=== PATIENT | male | born 1980 | race Caucasian/White ===

== ENCOUNTER 2018-10-07 16:35 | Emergency (ER) | payer BC ==
[2018-10-07 17:07] LABS: Urine Blood NEGATIVE (NEG); Urine Glucose NEGATIVE (NEG); Urine Protein NEGATIVE (NEG); Urine Specific Gravity 1.005 (1.005-1.030); Urine pH 6.5 (5.0-7.0)
[2018-10-07 17:16] LABS: Absolute Lymphocytes (CBC) 1.2 K/uL (0.7-4.9); Basophils % 0.1 % (0-1.3); Lymphocytes % 8.1 % (15.3-44.8); MPV 9.4 fL (7.6-11.3); RBC Red Blood Cell Count 5.39 M/uL (4.33-5.43)
[2018-10-07 17:24] LABS: Protime INR 0.94
[2018-10-07 17:35] LABS: ALT/SGPT 39 U/L (12-78); AST/SGOT 27 U/L (15-37); Albumin 4.1 g/dL (3.4-5.0); Alkaline Phosphatase 74 U/L (45-117); BUN Blood Urea Nitrogen 10 mg/dL (7-18); Bicarbonate 23 mmol/L (21-32); Bilirubin Direct 0.1 mg/dL (0-0.2); Bilirubin Total 0.5 mg/dL (0.2-1.0); Creatine Phosphokinase 185 U/L (39-308); Glucose Level 103 mg/dL (74-106); Magnesium 2.1 mg/dL (1.8-2.4); NT PRO-BNP 18 pg/mL (<125); Potassium 4.1 mmol/L (3.5-5.1); Protein, Total 7.7 g/dL (6.4-8.2); Sodium Level 135 mmol/L (136-145); Troponin (Emerg Dept Use Only) < 0.02 ng/mL (0.0-0.045)
--- NOTE | 2018-10-07 17:44 | ER ---
Nurse's Notes [facility] Name: Lj Hurley Age: 37 yrs Sex: Male : 1980 Arrival Date: 10/07/2018 Time: 16:39 Bed 14 Private MD: Diagnosis: Dizziness and giddiness;Essential (primary) hypertension Presentation: 10/07 16:39 Presenting complaint: Patient states: i was at work and been outside working, i checked hj my BP- 170/100, and i felt dizzy, i feel like im dry; reports nausea;. Transition of care: patient was not received from another setting of care. Onset of symptoms was October 07, 2018. Risk Assessment: Do you want to hurt yourself or someone else? Patient reports no desire to harm self or others. Initial Sepsis Screen: Does the patient meet any 2 criteria? No. Patient's initial sepsis screen is negative. Does the patient have a suspected source of infection? No. Patient's initial sepsis screen is negative. Care prior to arrival: None. 16:39 Method Of Arrival: Ambulatory 16:39 Acuity: [place] 3 hj Historical: - Allergies: 16:41 No Known Allergies; hj - PMHx: 16:41 testicular cancer; hj - PSHx: 16:41 testicle surgery; hj - Immunization history:: Adult Immunizations unknown. - Social history:: Smoking status: Patient/guardian denies using tobacco. - Ebola Screening: : No symptoms or risks identified at this time. Screenin:27 Abuse screen: Denies threats or abuse. Denies injuries from another. Nutritional ph screening: No deficits noted. Tuberculosis screening: No symptoms or risk factors identified. Fall Risk None identified. Assessment: 17:23 General: Appears in no apparent distress. comfortable, slender, well groomed, Behavior ph is cooperative, appropriate for age, anxious, Reports feeling ill for 12-24 hours, Denies fever. 17:25 Pain: Denies pain. Neuro: Level of Consciousness is awake, alert, obeys commands, ph Oriented to person, place, time, situation. Cardiovascular: Reports diaphoresis, fatigue, lightheadedness, nausea, Capillary refill < 3 seconds in bilateral fingers Patient's skin is warm and dry. Rhythm is sinus rhythm. Respiratory: Airway. Respiratory: Airway is patent Respiratory effort is even, unlabored, Respiratory pattern is regular, symmetrical. GI: Reports nausea, Patient currently denies diarrhea, vomiting. Derm: Skin is intact, is healthy with good turgor, Skin is pink, warm \T\ dry. Musculoskeletal: Circulation, motion, and sensation intact. Range of motion: intact in all extremities. 18:21 Reassessment: Patient appears in no apparent distress at this time. Patient and/or ph family updated on plan of care and expected duration. Pain level reassessed. Patient is alert, oriented x 3, equal unlabored respirations, skin warm/dry/pink. Patient states feeling better. Patient states symptoms have improved. Vital Signs: 16:41 BP 151 / 92; Pulse 104; Resp 18; Temp 98.3(O); Pulse Ox 100% on R/A; Weight 77.11 kg; hj Height 5 ft. 11 in. (180.34 cm); Pain 3/10; 17:28 BP 152 / 88; Pulse 92; Resp 18; Pulse Ox 99% on R/A; ph 18:20 BP 148 / 84; Pulse 85; Resp 18; Temp 97.8; Pulse Ox 99% on R/A; ph 16:41 Body Mass Index 23.71 (77.11 kg, 180.34 cm) ED Course: 16:39 Patient arrived in ED. hj 16:41 Triage completed. hj 16:41 Arm band placed on left wrist. hj 16:45 Velia Martinez FNP-C is [facility]. kb 16:45 Daron Osborne MD is Attending Physician. kb 16:51 Elidia Fernandez, RN is Primary Nurse. ph 17:02 Radiology exam delayed due to IV insertion attempt and/or patient not having bb2 appropriate IV at this time. 17:24 EKG done, by light rail signal technician. reviewed by Velia RAGSDALE. sm3 17:27 Patient has correct armband on for positive identification. Bed in low position. Call ph light in reach. Side rails up X 1. telemetry monitor on. Pulse ox on. NIBP on. Door closed. Noise minimized. Warm blanket given. Pillow given. Head of bed elevated. 17:27 Inserted saline lock: 20 gauge in left forearm, using aseptic technique. ph 17:46 XRAY Chest (1 view) In Process Unspecified. EDMS 18:20 No provider procedures requiring assistance completed. IV discontinued, intact, ph bleeding controlled, No redness/swelling at site. Pressure dressing applied. Administered Medications: No medications were administered Outcome: 17:43 Discharge ordered by . mike 18:21 Patient left the ED. ph 18:21 Discharged to home ambulatory, with family. ph 18:21 Condition: good 18:21 Discharge instructions given to patient, Instructed on discharge instructions, follow up and referral plans. Demonstrated understanding of instructions, follow-up care. Signatures: Dispatcher [employer] EDMS Velia Martinez, MOLLY-C MASTIC MAN-Elidia Matthews, RN RN Héctor Pinedo, RN RN Anuja Mahmood 2 Yenni Otero 3 Corrections: (The following items were deleted from the chart) 16:43 16:41 Pulse 104bpm; Resp 18bpm; Pulse Ox 100% RA; Temp 98.3F Oral; 77.11 kg; Height 5 hj ft. 11 in.; BMI: 23.7; Pain 3/10; hj 17:27 17:23 General: Appears ph ph
--- NOTE | 2018-10-07 17:45 | EDPHYS ---
Physician Documentation [facility] Name: Lj Hurley Age: 37 yrs Sex: Male : 1980 Arrival Date: 10/07/2018 Time: 16:39 Bed 14 Private MD: ED Physician Daron Osborne HPI: 10/07 16:59 This 37 yrs old Male presents to ER via Ambulatory with complaints of High kb Blood Pressure, Dizziness. 16:59 The patient has elevated blood pressure and discovered this during work physical. kb Onset: The symptoms/episode began/occurred today. Associated signs and symptoms: Pertinent positives: dizziness, Pertinent negatives: chest pain, dyspnea, headache, lightheadedness, nausea, visual changes, vomiting, weakness. Severity of symptoms: At its worst the blood pressure was 170 mm Hg, in the emergency department the blood pressure is improved, 151 mm Hg. The patient has not experienced similar symptoms in the past. The patient has not recently seen a physician. Pt reports he was feeling dizzy and had a dry mouth, checked his BP and it was high so he came in. Historical: - Allergies: 16:41 No Known Allergies; hj - PMHx: 16:41 testicular cancer; hj - PSHx: 16:41 testicle surgery; hj - Immunization history:: Adult Immunizations unknown. - Social history:: Smoking status: Patient/guardian denies using tobacco. - Ebola Screening: : No symptoms or risks identified at this time. ROS: 16:59 Constitutional: Negative for fever, chills, and weight loss, Neck: Negative for injury, kb pain, and swelling, Cardiovascular: Negative for chest pain, palpitations, and edema, Respiratory: Negative for shortness of breath, cough, wheezing, and pleuritic chest pain, Abdomen/GI: Negative for abdominal pain, nausea, vomiting, diarrhea, and constipation, Back: Negative for injury and pain, MS/Extremity: Negative for injury and deformity, Skin: Negative for injury, rash, and discoloration. 16:59 Neuro: Positive for dizziness. Exam: 16:59 Constitutional: This is a well developed, well nourished patient who is awake, alert, kb and in no acute distress. Head/Face: Normocephalic, atraumatic. ENT: Nares patent. No nasal discharge, no septal abnormalities noted. Tympanic membranes are normal and external auditory canals are clear. Oropharynx with no redness, swelling, or masses, exudates, or evidence of obstruction, uvula midline. Mucous membranes moist. Neck: Trachea midline, no thyromegaly or masses palpated, and no cervical lymphadenopathy. Supple, full range of motion without nuchal rigidity, or vertebral point tenderness. No Meningismus. Chest/axilla: Normal chest wall appearance and motion. Nontender with no deformity. No lesions are appreciated. Cardiovascular: Regular rate and rhythm with a normal S1 and S2. No gallops, murmurs, or rubs. Normal PMI, no JVD. No pulse deficits. Respiratory: Lungs have equal breath sounds bilaterally, clear to auscultation and percussion. No rales, rhonchi or wheezes noted. No increased work of breathing, no retractions or nasal flaring. Abdomen/GI: Soft, non-tender, with normal bowel sounds. No distension or tympany. No guarding or rebound. No evidence of tenderness throughout. Skin: Warm, dry with normal turgor. Normal color with no rashes, no lesions, and no evidence of cellulitis. MS/ Extremity: Pulses equal, no cyanosis. Neurovascular intact. Full, normal range of motion. Neuro: Awake and alert, GCS 15, oriented to person, place, time, and situation. Cranial nerves II-XII grossly intact. Motor strength 5/5 in all extremities. Sensory grossly intact. Cerebellar exam normal. Normal gait. 17:10 ECG was reviewed by the Attending Physician. Vital Signs: 16:41 BP 151 / 92; Pulse 104; Resp 18; Temp 98.3(O); Pulse Ox 100% on R/A; Weight 77.11 kg; hj Height 5 ft. 11 in. (180.34 cm); Pain 3/10; 17:28 BP 152 / 88; Pulse 92; Resp 18; Pulse Ox 99% on R/A; ph 18:20 BP 148 / 84; Pulse 85; Resp 18; Temp 97.8; Pulse Ox 99% on R/A; ph 16:41 Body Mass Index 23.71 (77.11 kg, 180.34 cm) MDM: 16:46 Patient medically screened. kb 17:01 Data reviewed: vital signs, nurses notes. Data interpreted: Pulse oximetry: on room air kb is 100 %. Interpretation: normal. 17:43 Counseling: I had a detailed discussion with the patient and/or guardian regarding: the kb historical points, exam findings, and any diagnostic results supporting the discharge/admit diagnosis, lab results, radiology results, the need for outpatient follow up, a family practitioner, to return to the emergency department if symptoms worsen or persist or if there are any questions or concerns that arise at home. 10/07 16:50 Order name: Basic Metabolic Panel; Complete Time: 17:42 kb 10/07 16:50 Order name: CBC with Diff kb 10/07 16:50 Order name: LFT's; Complete Time: 17:42 kb 10/07 16:50 Order name: Magnesium; Complete Time: 17:42 kb 10/07 16:50 Order name: NT PRO-BNP; Complete Time: 17:42 kb 10/07 16:50 Order name: PT-INR; Complete Time: 17:42 kb 10/07 16:50 Order name: Troponin (emerg Dept Use Only); Complete Time: 17:42 kb 10/07 16:50 Order name: XRAY Chest (1 view) kb 10/07 16:50 Order name: EKG; Complete Time: 16:51 kb 10/07 16:50 Order name: Cardiac monitoring; Complete Time: 17:22 kb 10/07 16:50 Order name: EKG - Nurse/Tech; Complete Time: 17:22 kb 10/07 16:50 Order name: IV Saline Lock; Complete Time: 17:22 kb 10/07 16:50 Order name: CPK; Complete Time: 17:42 kb 10/07 16:52 Order name: Urine Dipstick--Ancillary (enter results); Complete Time: 17:10 kb 10/07 16:50 Order name: Labs collected and sent; Complete Time: 17:22 kb 10/07 16:50 Order name: O2 Per Protocol; Complete Time: 17:22 kb 10/07 16:50 Order name: O2 Sat Monitoring; Complete Time: 17:22 kb EC:10 Rate is 95 beats/min. Rhythm is regular, Normal Sinus Rhythm. QRS [place] is Normal. [place] kb interval is normal at 168 msec. QRS interval is normal at 94 msec. QT interval is normal at 348 msec. Administered Medications: No medications were administered Disposition: 10/07/18 17:43 Discharged to Home. Impression: Dizziness and giddiness, Essential (primary) hypertension. - Condition is Stable. - Discharge Instructions: Hypertension, [id number], Dizziness, [id number]. - Medication Reconciliation Form, Thank You Letter, Antibiotic Education, Prescription Opioid Use, Work release form form. - Follow up: Emergency Department; When: As needed; Reason: Worsening of condition. Follow up: Private Physician; When: 2 - 3 days; Reason: Recheck today's complaints, Continuance of care, Re-evaluation by your physician. Addendum: 10/08/2018 20:37 Co-signature as Attending Physician, Daron Osborne MD I agree with the assessment and c laureano plan of care. Signatures: Dispatcher [employer] EDMS Velia Martinez, HAND WASHER-C HAND WASHER-Daron Woods MD MD cha Hall, Patricia, RN RN ph Héctor Pinedo RN RN Corrections: (The following items were deleted from the chart) 10/07 18:21 17:43 10/07/2018 17:43 Discharged to Home. Impression: Dizziness and giddiness; ph Essential (primary) hypertension. Condition is Stable. Forms are Medication Reconciliation Form, Thank You Letter, Antibiotic Education, Prescription Opioid Use. Follow up: Emergency Department; When: As needed; Reason: Worsening of condition. Follow up: Private Physician; When: 2 - 3 days; Reason: Recheck today's complaints, Continuance of care, Re-evaluation by your physician. kb
--- NOTE | 2018-10-07 17:58 | RAD REPORT ---
EXAM DESCRIPTION: RAD - Chest Single View - 10/07/2018 5:45 pm CLINICAL HISTORY: Hypertension, history of testicular cancer, chest pain COMPARISON: None. TECHNIQUE: AP portable chest image was obtained 1722 hours . FINDINGS: Lungs are clear. Heart and vasculature are normal. No measurable pleural effusion and no p neumothorax. No acute bony abnormality seen. No acute aortic findings suspected. IMPRESSION: No acute cardiopulmonary process.
[2018-10-07 20:42] LABS: Blood Morphology Comment NOT SEEN (NOT SEEN); Platelet Estimate ADEQ; Urine White Blood Cell Casts OK
--- NOTE | 2018-10-08 11:23 | EKG ---
Test Date: 2018-10-07 Test Time: 17:08:04 Data Entry Specialist: VAISHALI MEASUREMENT RESULTS: Intervals: Rate: 95 ID: [id number] QRSD: 94 QT: 348 QTc: 437 [place]: P: 65 ID: [id number] QRS: 49 T: 47 INTERPRETIVE STATEMENTS: Normal sinus rhythm Normal ECG No previous ECG available for comparison Electronically Signed On 10-08-18 11:19:31 CDT by Jef Tillman
== END 2018-10-07 18:21 | disposition home or self-care (01) ==
LOC: ER 16:35
DX: I10 Essential (primary) hypertension (principal); Z85.47 Personal history of malignant neoplasm of testis
CPT/HCPCS: 36415; 71045; 80048; 80076; 81003; 82550; 83735; 83880; 84484; 85025; 85610; 93005; 99284

== ENCOUNTER 2019-11-13 18:49 | Emergency (ER) | payer BC ==
[2019-11-13 19:45] LABS: Absolute Lymphocytes (CBC) 1.8 K/uL (0.7-4.9); Basophils % 0.2 % (0-1.3); Hematocrit 46.9 % (39.6-49.0); Lymphocytes % 19.5 % (15.3-44.8); MPV 8.9 fL (7.6-11.3); RBC Red Blood Cell Count 5.32 M/uL (4.33-5.43)
[2019-11-13 19:48] LABS: Protime INR 1.01
[2019-11-13 20:09] LABS: ALT/SGPT 42 U/L (12-78); AST/SGOT 23 U/L (15-37); Albumin 4.3 g/dL (3.4-5.0); Alkaline Phosphatase 77 U/L (45-117); BUN Blood Urea Nitrogen 8 mg/dL (7-18); Bicarbonate 26 mmol/L (21-32); Bilirubin Direct 0.2 mg/dL (0-0.2); Bilirubin Total 0.7 mg/dL (0.2-1.0); Glucose Level 96 mg/dL (74-106); Magnesium 2.4 mg/dL (1.8-2.4); Potassium 3.5 mmol/L (3.5-5.1); Protein, Total 7.7 g/dL (6.4-8.2); Sodium Level 141 mmol/L (136-145); Troponin (Emerg Dept Use Only) < 0.02 ng/mL (0.0-0.045)
[2019-11-13 20:10] LABS: NT PRO-BNP < 5 pg/mL (<125)
--- NOTE | 2019-11-13 20:35 | ER ---
Nurse's Notes [facility] Name: Lj Hurley Age: 38 yrs Sex: Male : 1980 Arrival Date: 11/13/2019 Time: 18:53 Bed 14 Private MD: Olivia Reyes H Diagnosis: Other chest pain Presentation: 11/12 19:02 Chief complaint: Patient states: Chest discomfort noticed off/on since yesterday. No ll1 fever or cough. Coronavirus screen: Client denies travel out of the [place] in the last 14 days. At this time, the client does not indicate any symptoms associated with coronavirus-19. Ebola Screen: Patient denies travel to an Ebola-affected area in the 21 days before illness onset. Initial Sepsis Screen: Does the patient meet any 2 criteria? No. Patient's initial sepsis screen is negative. Risk Assessment: Do you want to hurt yourself or someone else? Patient reports no desire to harm self or others. Onset of symptoms was November 12, 2019. 19:02 Method Of Arrival: Ambulatory 1 19:02 Acuity: [place] 3 ll1 19:30 Initial Sepsis Screen: Does the patient have a suspected source of infection? No. wh Patient's initial sepsis screen is negative. Historical: - Allergies: 19:04 No Known Allergies; ll1 - PMHx: 19:04 testicular cancer; ll1 - PSHx: 19:04 testicle surgery; ll1 - Immunization history:: Flu vaccine is not up to date. - Social history:: Smoking status: Patient reports use of chewing tobacco. Patient denies any tobacco usage or history of. Screenin:30 Abuse screen: Denies threats or abuse. Denies injuries from another. Nutritional screening: No deficits noted. Tuberculosis screening: No symptoms or risk factors identified. Fall Risk None identified. Assessment: 19:25 General: Appears in no apparent distress. Behavior is calm, cooperative, appropriate for age. Pain: Complains of pain in chest Pain does not radiate. Pain currently is 1 out of 10 on a pain scale. Quality of pain is described as dull, Pain began 1 day ago. Neuro: Level of Consciousness is awake, alert, obeys commands, Oriented to person, place, time, situation, Appropriate for age. Cardiovascular: Reports chest pain, Heart tones S1 S2 Rhythm is regular. Respiratory: Airway is patent Respiratory effort is even, unlabored, Respiratory pattern is regular, symmetrical, Breath sounds are clear bilaterally. GI: Abdomen is flat, non-distended. : No signs and/or symptoms were reported regarding the genitourinary system. EENT: No signs and/or symptoms were reported regarding the EENT system. Derm: Skin is intact, is healthy with good turgor, Skin is pink, warm \T\ dry. normal. Musculoskeletal: Circulation, motion, and sensation intact. 20:45 Reassessment: Patient appears in no apparent distress at this time. No changes from previously documented assessment. Patient and/or family updated on plan of care and expected duration. Pain level reassessed. Patient is alert, oriented x 3, equal unlabored respirations, skin warm/dry/pink. Vital Signs: 19:02 BP 159 / 106; Pulse 79; Resp 18; Temp 98.1; Pulse Ox 97% ; Weight 74.84 kg; Height 5 ll1 ft. 11 in. (180.34 cm); Pain 2/10; 19:31 BP 134 / 94 RA (auto/reg); Pulse 74; Resp 22; Pulse Ox 100% on R/A; Pain 2/10; jp3 20:45 BP 133 / 92; Pulse 67; Resp 18; Pulse Ox 98% on R/A; wh 19:02 Body Mass Index 23.01 (74.84 kg, 180.34 cm) ll1 ED Course: 18:53 Patient arrived in ED. mr 18:53 Olivia Reyes DO is Private Physician. mr 19:03 Triage completed. ll1 19:04 Arm band placed on Patient placed in an exam room, on a stretcher. ll1 19:05 Mike Atkins is Primary Nurse. wh 19:10 EKG done, by ED staff, reviewed by Tony Hernandez MD. jp3 19:17 Call light in reach. Side rails up X 1. Verbal reassurance given. library monitor on. jp3 Pulse ox on. NIBP on. 19:18 Tony Hernandez MD is Attending Physician. tw4 19:28 Initial lab(s) drawn, by me, sent to lab. Inserted saline lock: 20 gauge in right jp3 wrist, using aseptic technique. Blood collected. 19:28 Patient maintains SpO2 saturation greater than 95% on room air. jp3 19:35 X-ray(s) taken. jp3 19:38 XRAY Chest (1 view) In Process Unspecified. EDRI 20:34 Olivia Reyes DO is Referral Physician. [facility] 20:55 No provider procedures requiring assistance completed. IV discontinued, intact, bleeding controlled, No redness/swelling at site. Administered Medications: No medications were administered Outcome: 20:35 Discharge ordered by . 4 20:55 Discharged to home ambulatory. 20:55 Condition: stable 20:55 Discharge instructions given to patient, Instructed on discharge instructions, follow up and referral plans. POC Demonstrated understanding of instructions, follow-up care, POC 20:56 Patient left the ED. Signatures: Dispatcher [employer] EDRI Jaida Smith mr Atkins, Mike Tony Hernandez MD MD tw4 El Garcia 3 Diana Trevizo, RN RN ll1
--- NOTE | 2019-11-13 20:35 | EDPHYS ---
Physician Documentation [facility] Name: Lj Hurley Age: 38 yrs Sex: Male : 1980 Arrival Date: 11/13/2019 Time: 18:53 Bed 14 Private MD: Olivia Reyes H ED Physician Tony Hernandez HPI: 11/12 20:10 This 38 yrs old Male presents to ER via Ambulatory with complaints of Chest tw4 Discomfort. 20:10 The patient or guardian reports chest pain that is located primarily in the anterior tw4 chest wall, left. The pain does not radiate. Associated signs and symptoms: The patient has no apparent associated signs or symptoms. The chest pain is described as squeezing. Duration: The patient or guardian reports a single episode. Modifying factors: The symptoms are alleviated by nothing. the symptoms are aggravated by nothing. Severity of pain: At its worst the pain was mild in the emergency department the pain has resolved has improved. The patient has not experienced similar symptoms in the past. Historical: - Allergies: 19:04 No Known Allergies; ll1 - PMHx: 19:04 testicular cancer; ll1 - PSHx: 19:04 testicle surgery; ll1 - Immunization history:: Flu vaccine is not up to date. - Social history:: Smoking status: Patient reports use of chewing tobacco. Patient denies any tobacco usage or history of. ROS: 20:10 Constitutional: Negative for fever, chills, and weight loss, Eyes: Negative for injury, tw4 pain, redness, and discharge, Respiratory: Negative for shortness of breath, cough, wheezing, and pleuritic chest pain, Abdomen/GI: Negative for abdominal pain, nausea, vomiting, diarrhea, and constipation, Back: Negative for injury and pain, MS/Extremity: Negative for injury and deformity, Skin: Negative for injury, rash, and discoloration, Neuro: Negative for headache, weakness, numbness, tingling, and seizure. 20:10 Cardiovascular: Positive for chest pain, Negative for edema, orthopnea, palpitations, paroxysmal nocturnal dyspnea. Exam: 20:10 Constitutional: This is a well developed, well nourished patient who is awake, alert, tw4 and in no acute distress. Head/Face: Normocephalic, atraumatic. Eyes: Pupils equal round and reactive to light, extra-ocular motions intact. Lids and lashes normal. Conjunctiva and sclera are non-icteric and not injected. Cornea within normal limits. Periorbital areas with no swelling, redness, or edema. Chest/axilla: Normal chest wall appearance and motion. Nontender with no deformity. No lesions are appreciated. Cardiovascular: Regular rate and rhythm with a normal S1 and S2. No gallops, murmurs, or rubs. Normal PMI, no JVD. No pulse deficits. Respiratory: Lungs have equal breath sounds bilaterally, clear to auscultation and percussion. No rales, rhonchi or wheezes noted. No increased work of breathing, no retractions or nasal flaring. Abdomen/GI: Soft, non-tender, with normal bowel sounds. No distension or tympany. No guarding or rebound. No evidence of tenderness throughout. Back: No spinal tenderness. No costovertebral tenderness. Full range of motion. Skin: Warm, dry with normal turgor. Normal color with no rashes, no lesions, and no evidence of cellulitis. MS/ Extremity: Pulses equal, no cyanosis. Neurovascular intact. Full, normal range of motion. Neuro: Awake and alert, GCS 15, oriented to person, place, time, and situation. Cranial nerves II-XII grossly intact. Motor strength 5/5 in all extremities. Sensory grossly intact. Cerebellar exam normal. Normal gait. Vital Signs: 19:02 BP 159 / 106; Pulse 79; Resp 18; Temp 98.1; Pulse Ox 97% ; Weight 74.84 kg; Height 5 ll1 ft. 11 in. (180.34 cm); Pain 2/10; 19:31 BP 134 / 94 RA (auto/reg); Pulse 74; Resp 22; Pulse Ox 100% on R/A; Pain 2/10; jp3 20:45 BP 133 / 92; Pulse 67; Resp 18; Pulse Ox 98% on R/A; wh 19:02 Body Mass Index 23.01 (74.84 kg, 180.34 cm) ll1 MDM: 19:18 Patient medically screened. tw4 20:33 Differential diagnosis: acute myocardial infarction, acute pericarditis, anxiety, tw4 costochondritis, stable angina, unstable angina. HEART Score: History: Slightly Suspicious (0), ECG: Non specific repolarization disturbance / LBTB / PM (1), Age: < or = 45 years (0), Risk Factors: 1 or 2 risk factors (1), Troponin: < or = 1 x Normal Limit (0), Total Score = 2. Data reviewed: vital signs, nurses notes. Data interpreted: Pulse oximetry: Interpretation: normal. Counseling: I had a detailed discussion with the patient and/or guardian regarding: the historical points, exam findings, and any diagnostic results supporting the discharge/admit diagnosis, lab results, radiology results. Special discussion: I discussed with the patient/guardian in detail that at this point there is no indication for admission to the hospital. It is understood, however, that if the symptoms persist or worsen the patient needs to return immediately for re-evaluation. 11/12 19:19 Order name: Basic Metabolic Panel; Complete Time: 20:16 [facility] 11/12 20:17 Interpretation: Within normal limits. 11/12 19:19 Order name: CBC with Diff; Complete Time: 20:16 11/12 20:17 Interpretation: Within normal limits. 11/12 19:19 Order name: LFT's; Complete Time: 20:16 11/12 20:17 Interpretation: Within normal limits. 11/12 19:19 Order name: Magnesium; Complete Time: 20:16 11/12 20:17 Interpretation: Within normal limits: MG 2.4. 11/12 19:19 Order name: NT PRO-BNP; Complete Time: 20:16 [facility] 11/12 20:17 Interpretation: Within normal limits: NT PRO-BNP < 5. 11/12 19:19 Order name: PT-INR; Complete Time: 20:16 11/12 20:17 Interpretation: Within normal limits: PT 11.9. 11/12 19:19 Order name: Troponin (emerg Dept Use Only); Complete Time: 20:16 [facility] 11/12 20:17 Interpretation: Within normal limits: TROPED < 0.02. 11/12 19:19 Order name: XRAY Chest (1 view) [facility] 11/12 19:19 Order name: EKG; Complete Time: 19:19 11/12 19:19 Order name: Cardiac monitoring; Complete Time: 19:35 4 11/12 19:19 Order name: EKG - Nurse/Tech; Complete Time: 19:35 tw4 11/12 19:19 Order name: IV Saline Lock; Complete Time: 19:35 tw4 11/12 19:19 Order name: Labs collected and sent; Complete Time: 19:35 tw4 11/12 19:19 Order name: O2 Per Protocol; Complete Time: 19:35 tw4 11/12 19:19 Order name: O2 Sat Monitoring; Complete Time: :35 tw4 EC:10 Rate is 68 beats/min. Rhythm is regular. QRS [place] is Normal. SC interval is normal. QRS tw4 interval is normal. QT interval is normal. No Q waves. T waves are Flattened in lead aVL. No ST changes noted. Clinical impression: NSR w/ Non-specific ST/T Changes. Interpreted by me. Reviewed by me. Administered Medications: No medications were administered Disposition: 11/13/19 20:35 Discharged to Home. Impression: Other chest pain. - Condition is Stable. - Discharge Instructions: Nonspecific Chest Pain, Hypertension. - Medication Reconciliation Form, Thank You Letter, Antibiotic Education, Prescription Opioid Use form. - Follow up: Olivia Reyes DO; When: Upon discharge from the Emergency Department; Reason: Recheck today's complaints, Continuance of care, Re-evaluation by your physician. - Problem is new. - Symptoms have improved. Signatures: Dispatcher [employer] EDMS Mike Atkins Terrence, MD MD tw4 Diana Trevizo RN RN ll1 Corrections: (The following items were deleted from the chart) 20:56 20:35 11/13/2019 20:35 Discharged to Home. Impression: Other chest pain. Condition is wh Stable. Forms are Medication Reconciliation Form, Thank You Letter, Antibiotic Education, Prescription Opioid Use. Follow up: Olivia Reyes; When: Upon discharge from the Emergency Department; Reason: Recheck today's complaints, Continuance of care, Re-evaluation by your physician. Problem is new. Symptoms have improved. tw4
[2019-11-13 21:29] VITALS: TEMP 98.1
[2019-11-13 21:32] VITALS: BP 133/92; O2SAT 98
--- NOTE | 2019-11-14 11:39 | EKG ---
Test Date: 2019-11-13 Test Time: 19:14:49 Atm Technician: DAYA MEASUREMENT RESULTS: Intervals: Rate: 68 [place]: 170 QRSD: 98 QT: 380 QTc: 404 [place]: P: 79 [place]: 170 QRS: 74 T: 85 INTERPRETIVE STATEMENTS: Normal sinus rhythm Nonspecific ST abnormality Abnormal ECG Compared to ECG 10/07/2018 17:08:04 ST (T wave) deviation now present Electronically Signed On 11-14-19 11:37:27 CDT by Jef Tillman
--- NOTE | 2019-11-14 12:01 | RAD REPORT ---
EXAM DESCRIPTION: RAD - Chest Single View - 11/13/2019 10:23 pm CLINICAL HISTORY: CHEST PAIN Chest pain. COMPARISON: Chest Single View dated 10/07/2018 FINDINGS: Portable technique limits examination quality. The lungs are grossly clear. The heart is normal in size. No displaced fractures. IMPRESSION: No acute intrathoracic process suspected.
== END 2019-11-13 20:56 | disposition home or self-care (01) ==
LOC: ER 18:49
DX: R07.89 Other chest pain (principal); F17.220 Nicotine dependence, chewing tobacco, uncomplicated; Z85.47 Personal history of malignant neoplasm of testis
CPT/HCPCS: 36415; 71045; 80048; 80076; 83735; 83880; 84484; 85025; 85610; 93005; 99285